=== PATIENT | male | born 1965 | race Caucasian/White ===

== ENCOUNTER 2024-05-12 04:42 | Emergency (ER) | payer OTHER ==
[~2024-05-12] VITALS: Ht 185.4 cm; Wt 99.8 kg
--- NOTE | 2024-05-12 04:50 | ERN ---
General Chief Complaint: Chest Pain Stated Complaint: CHEST PAIN Time Seen by MD: 04:44 Source: patient History of Present Illness Initial Comments 58-YEAR-OLD GENTLEMAN COMING IN WITH LEFT-SIDED CHEST PAIN. PATIENT STATES THAT THE LEFT-SIDED CHEST PAIN BEGAN THREE DAYS AGO IN HIS PROGRESSIVELY MORE CONSTANT. INITIALLY STARTED SPORADICALLY NOT ASSOCIATED WITH PHYSICAL ACTIVITY. HE INITIALLY BLAMED THE SYMPTOMS ON SALT WATER AIR. Allergies: Coded Allergies: No Known Drug Allergies (Unverified Allergy, Unknown, 05/12/24) ROS Dictation CONSTITUTIONAL: NO CHILLS, NO FEVER, NO WEAKNESS, NO DIAPHORESIS, NO MALAISE. HEAD/FACE: NO SIGNS OF TRAUMA. EENT: NO EYE PAIN, NO BLURRED VISION, NO TEARING, NO DOUBLE VISION, NO EAR PAIN, NO EAR DISCHARGE, NO NOSE PAIN, NO NASAL CONGESTION, NO THROAT PAIN, NO THROAT SWELLING, NO MOUTH PAIN. RESPIRATORY: NO COUGH, NO ORTHOPNEA, NO SOB, NO STRIDOR, NO WHEEZING. CARDIOVASCULAR: NO CHEST PAIN, NO EDEMA, NO PALPITATIONS, NO SYNCOPE. GASTROINTESTINAL/ABDOMINAL: NO ABDOMINAL PAIN, NO CONSTIPATION, NO DIARRHEA, NO NAUSEA, NO VOMITING. GENITOURINARY: NO ABNORMAL DISCHARGE, NO DYSURIA, NO FREQUENT URINATION, NO HEMATURIA. NO COMPLAINTS OF PAIN IN THE GENITALS. MUSCULOSKELETAL: NO BACK PAIN, NO GOUT, NO JOINT PAIN, NO JOINT SWELLING, NO MUSCLE PAIN, NO MUSCLE STIFFNESS, NO NECK PAIN. INTEGUMENTARY: NO CHANGE IN COLOR, NO CHANGE IN HAIR/NAILS, NO DRYNESS, NO LESION, NO LUMPS, NO RASH. NEUROLOGICAL/PSYCH: NO ANXIETY, NOT DEPRESSED, NO EMOTIONAL PROBLEM, NO HEADACHE, NO NUMBNESS, NO PRE-EXISTING DEFICIT, NO HISTORY OF SEIZURES, NO TREMORS, NO WEAKNESS. HEMATOLOGIC/LYMPHATIC: NOT ANEMIC, NO HISTORY OF BLOOD CLOTS, NO APPARENT BLEEDING, NO BRUISING, GLANDS NOT SWOLLEN. ALL SYSTEMS NEGATIVE, EXCEPT NOTED. Physical Exam Physical Exam Dictation VITAL SIGNS: REVIEWED. GENERAL APPEARANCE: ALERT, ORIENTED X3, NO ACUTE DISTRESS, OBESE. HEAD AND FACE: NON-TRAUMATIC. EYES: PERRL, PINK CONJUNCTIVAS, EYELID NO TRAUMA, ANTERIOR CHAMBER CLEAR. EARS: PINNAS INTACT AND NO SIGNS OF TRAUMA OR ERYTHEMA. EAR CANALS CLEAR AND NO DISCHARGE. TMS NO ERYTHEMA. NOSE: NO DISCHARGE, NO BLEEDING. OROPHARYNX: MOUTH NORMAL, TEETH NO CARIES, TONGUE PINK. PHARYNX CLEAR, NO ERYTHEMA. TONSILS NO EXUDATES, NO ABSCESSES NOTED. MUCOUS MEMBRANE MOIST. NECK: SUPPLE, NON-TENDER, NO THYROMEGALY, NO MASSES, NO JVD, NO BRUITS. BREAST: DEFERRED. CHEST: NO TENDERNESS, NO CREPITUS, NO PARADOXICAL MOVEMENT, NO RETRACTIONS. LUNGS: CLEAR, WELL-VENTILATED, SYMMETRIC, NO RALES, NO WHEEZING, NO RHONCHI, NO STRIDOR, GOOD BREATH SOUNDS BILATERALLY. HEART: REGULAR RATE, REGULAR RHYTHM, NO MURMUR, NO GALLOPS. VASCULAR: NO PERIPHERAL EDEMA. ABDOMEN: SOFT, POSITIVE BOWEL SOUNDS, NONDISTENDED, NO GUARDING, NONTENDER, NO REBOUND, NO MASSES NO HEPATOMEGALY, NO SPLENOMEGALY, NO LOREDO'S SIGN, NO NABEEL IAS. RECTAL: DEFERRED. GENITAL: DEFERRED. NEUROLOGICAL: NORMAL SPEECH, GROSS MOTOR FUNCTION INTACT, GROSS SENSORY FUNCTION INTACT. MUSCULOSKELETAL: NECK NONTENDER, FULL RANGE OF MOTION, BACK NONTENDER, FULL RANGE OF MOTION. EXTREMITIES: NONTENDER, FULL RANGE OF MOTION. SKIN: COLOR PINK, DRY, NO TURGOR, NO RASH, NO LACERATIONS, NO ABRASIONS, NO CONTUSIONS. LYMPHATICS: DEFERRED. Results Laboratory and Microbiology Lab and Micro Result Laboratory Tests Test 05/12/24 04:51 05/12/24 05:21 05/12/24 07:25 White Blood Count 5.0 K/uL (4.8-10.8) Red Blood Count 4.73 MIL/uL (4.50-6.20) Hemoglobin 14.7 g/dL (14.0-18.0) Hematocrit 41.7 % (42-54) L Mean Corpuscular Volume 88.2 fL (79-99) Mean Corpuscular Hemoglobin 31.1 pg (27.0-33.0) Mean Corpuscular Hemoglobin Concent 35.3 g/dL (32.0-36.0) Red Cell Distribution Width 11.5 % (11.0-15.5) Platelet Count 240 K/uL (130-400) Mean Platelet Volume 9.1 fL (7.5-10.5) Immature Granulocyte % (Auto) 0.2 % (0-1) Neutrophils (%) (Auto) 45.7 % (40.0-77.0) Lymphocytes (%) (Auto) 37.3 % (21.0-51.0) Monocytes (%) (Auto) 10.8 % (3.0-13.0) Eosinophils (%) (Auto) 5.0 % (0.0-8.0) Basophils (%) (Auto) 1.0 % (0.0-5.0) Neutrophils # (Auto) 2.3 K/uL (1.8-7.7) Lymphocytes # (Auto) 1.9 K/uL (1.0-4.8) Monocytes # (Auto) 0.5 K/uL (0.1-1.0) Eosinophils # (Auto) 0.25 K/uL (0.00-0.70) Basophils # (Auto) 0.05 K/uL (0.00-0.20) Absolute Immature Granulocyte (auto 0.01 K/uL (0-1) Nucleated Red Blood Cells 0.0 % (0.0-0.19) Prothrombin Time 9.8 SEC (9.6-11.6) Prothromb Time International Ratio <= 0.93 (0.85-1.15) Activated Partial Thromboplast Time 23.9 SEC (26.3-35.5) L Sodium Level 142 mmol/L (136-145) Potassium Level 4.5 mmol/L (3.5-5.1) Chloride Level 103 mmol/L (101-111) Carbon Dioxide Level 31 mmol/L (21-32) Blood Urea Nitrogen 16 mg/dL (7-18) Creatinine 0.9 mg/dL (0.5-1.3) Glomerular Filtration Rate Calc 98 mL/min (>90) Random Glucose 109 mg/dL (70-105) H Total Calcium 9.0 mg/dL (8.5-10.1) Magnesium Level 1.70 mg/dL (1.80-2.40) L Total Creatine Kinase 105 U/L (21-232) Troponin I High Sensitivity 6 ng/L (4-75) 6 ng/L (4-75) B-Type Natriuretic Peptide 8 pg/mL (0-100) Urine Color LIGHT-YELLOW (YELLOW) Urine Appearance CLEAR (CLEAR) Urine pH 5.0 (5.0-8.0) Urine Specific [place] 1.015 (1.001-1.031) Urine Protein NEGATIVE mg/dL (NEGATIVE) Urine Glucose (UA) NEGATIVE mg/dL (NEGATIVE) Urine Ketones NEGATIVE mg/dL (NEGATIVE) Urine Occult Blood NEGATIVE (NEGATIVE) Urine Nitrate NEGATIVE (NEGATIVE) Urine Bilirubin NEGATIVE mg/dL (NEGATIVE) Urine Urobilinogen 0.2 mg/dL (0.2-1.0) Urine Leukocyte Esterase NEGATIVE Teressa/uL Labs Reviewed?: Yes EKG/XRAY/US/CT/MRI EKG Comment 05/12/2024 TIME 4:45 A.M. VENTRICULAR RATE [address] SINUS RHY[address] [place] [address] WAVE ELEVATION OR DEPRESSION MDM CC: chest pain Historian: pateint Limitations by social determinates of health: [place], no local care here Comorbidities: denies medical conditions VS: HTN 162/92, otherwise stable. Ddx: ACS, PE, TAD, PNA, bronchitis, etc. EKG ( Independently interpreted by me) : NSR w/ sinus arrhythmia, rate 75, LAD, good RWP, no STEMI. Independently interpreted by me. Labs (independently ordered & interpreted by me): CBC normal. Coags normal. BMP normal. Mag low at 1.7. CK normal. BNP normal. Troponin x 2 normal. CXR (independently ordered & interpreted by me): no cardiomegally, no effusions, no focal infiltrates. No acute abnormalities. Treatment in ED: patient took ASA prior to arrival. Magnesium IV for replacement. NTG for pain. Zofran, protonix. Re-eval: patient pain free. Stable VS other than some HTN. Risk: patient has a HEART score of 1 due to age only. Low risk with 2 normal troponins. Low risk wells. No signs of PE, PTX, sepsis, etc. No life threats currently. Plan: I offered admission for cardiac workup, but patient prefers to go home and f/u as outpatient. Will DC. ED Course Orders Procedure Category Date Status Time Cbc With Differential LAB 05/12/24 Complete 04:46 Prothrombin Time With LAB 05/12/24 Complete INR 04:46 B-Type Natriuretic LAB 05/12/24 Complete Peptide 04:46 Chest 1vw RAD 05/12/24 Taken 04:46 12 Lead Ekg Tracing- EKG 05/12/24 Complete Technical 04:46 Ondansetron 4mg Inj PHA 05/12/24 Complete (Zofran 4mg Inj) 05:00 Magnesium LAB 05/12/24 Complete 04:46 Creatine Kinase, Total LAB 05/12/24 Complete 04:46 Troponin I High LAB 05/12/24 Complete Sensitivity 04:46 Urinalysis Profile LAB 05/12/24 Complete 04:46 Partial LAB 05/12/24 Complete Thromboplastin Time 04:46 Basic Metabolic Panel LAB 05/12/24 Complete 04:46 Pantoprazole 40mg Inj PHA 05/12/24 Complete (Protonix 40mg Inj 06:00 Magnesium 2gm Premix PHA 05/12/24 Complete 50ml (Magnesium 2gm 05:54 Troponin I High LAB 05/12/24 Logged Sensitivity 05:56 Nitroglycerin 0.4mg PHA 05/12/24 In Process Sl Tab (Nitrostat) 07:00 12 Lead Ekg Tracing- EKG 05/12/24 Logged Technical 07:32 Troponin I High LAB 05/12/24 Complete Sensitivity 07:32 Current Medications Medications (Trade) Dose Ordered Sig/Juan Route PRN Reason Start Time Stop Time Status Last Admin Dose Admin Magnesium Sulfate 50 ml @ 0 mls/hr PROTOCOL STAT IV 05/12/24 05:54 05/12/24 05:55 DC 05/12/24 06:19 Nitroglycerin (Nitrostat) 0.4 mg AD PRN SL CHEST PAIN 05/12/24 07:00 06/11/24 06:59 Ondansetron HCl (zoFRAN 4MG INJ) 4 mg ONCE ONCE IVP 05/12/24 05:00 05/12/24 05:01 DC 05/12/24 05:34 Pantoprazole Sodium (PROTonix 40MG INJ) 40 mg ONCE ONCE IVP 05/12/24 06:00 05/12/24 06:01 DC 05/12/24 06:19 Vital Signs Date Time Temp Pulse Resp B/P (MAP) Pulse Ox O2 Delivery O2 Flow Rate FiO2 05/12/24 06:30 97.9 76 20 154/88 100 Room Air* 0 21 05/12/24 04:54 97.9 72 20 162/92 100 Room Air* 0 21 05/12/24 04:48 98.2 81 17 162/92 100 Room Air 0 DX & DISP Disposition: Discharge Departure Impression: Primary Impression: Chest pain Additional Impressions: High blood pressure, Low magnesium levels Condition: Stable Additional Instructions: You have been diagnosed with low risk chest pain, high blood pressure readings, and low magnesium here in the ER. Your blood pressure was 154/88 in the ER. This is elevated. Please follow up with your primary doctor back home in [place] for re-evaluation. Your lab work (CBC, coagulation studies, urinalysis, BMP, magnesium level, CK, troponin x2, BNP) shows low magnesium ( 1.7), but is otherwise unremarkable. You received magnesium supplementation here in the ER. Your EKG shows a sinus rhythm. your chest x-ray is normal. Regarding your chest pain, you are LOW risk for cardiac disease, but no ZERO risk. Monitor for worsening or persistent chest pains, shortness of breath, dizziness or fainting, or in the other concerning symptoms. Return to the emergency department if those develop. Otherwise, you can follow up as an outpatient with your primary doctor. Recommendations: 1: Follow up with your primary doctor at home regarding your chest pain. 2: Follow up with your primary doctor at home regarding your high blood pressure. Limit your salt intake. Eat a heart healthy diet rich in fruits, vegetables, whole grains, and lean protein. Reduce caffeine and alcohol consumption. In for at least 30 minutes of moderate exercise three to four days per week. Avoid smoking. 3: Increase magnesium rich foods in your diet such as nuts, seeds, leafy greens, whole grains, and fish. You can also take an [id number] multivitamin if needed. Please return to the emergency department if you have any concerns. CHADD FLANAGAN MD May 12, 2024 04:50 MERRITT LEON DO May 12, 2024 07:46
[2024-05-12 04:59] LABS: BASOPHILS # (AUTO) 0.05 K/uL (0.00-0.20); EOSINOPHILS # (AUTO) 0.25 K/uL (0.00-0.70); HEMATOCRIT 41.7 % (42-54); IMMATURE GRANULOCYTE ABSOLUTE 0.01 K/uL (0-1); LYMPHOCYTES # (AUTO) 1.9 K/uL (1.0-4.8); LYMPHOCYTES % (AUTO) 37.3 % (21.0-51.0); MEAN CORPUSCULAR HEMOGLOBIN 31.1 pg (27.0-33.0); MEAN CORPUSCULAR HGB CONC 35.3 g/dL (32.0-36.0); MEAN CORPUSCULAR VOLUME 88.2 fL (79-99); MONOCYTES # (AUTO) 0.5 K/uL (0.1-1.0); MONOCYTES % (AUTO) 10.8 % (3.0-13.0); NEUTROPHILS # (AUTO) 2.3 K/uL (1.8-7.7); NEUTROPHILS % (AUTO) 45.7 % (40.0-77.0); PLATELET COUNT (AUTO) 240 K/uL (130-400); RED BLOOD CELL COUNT(AUTO) 4.73 MIL/uL (4.50-6.20); RED CELL DISTRIBUTION WIDTH 11.5 % (11.0-15.5)
[2024-05-12 05:10] LABS: CREATININE 0.9 mg/dL (0.5-1.3); POTASSIUM 4.5 mmol/L (3.5-5.1)
[2024-05-12 05:14] LABS: MAGNESIUM 1.7 mg/dL (1.80-2.40)
[2024-05-12 05:16] LABS: INR <= 0.93 (0.85-1.15); PROTHROMBIN TIME 9.8 SEC (9.6-11.6)
[2024-05-12 05:17] LABS: PARTIAL THROMBOPLASTIN TIME 23.9 SEC (26.3-35.5)
[2024-05-12 05:26] LABS: B-TYPE NATRIURETIC PEPTIDE 8 pg/mL (0-100)
[2024-05-12 05:32] LABS: APPEARANCE,URINE CLEAR (CLEAR); BILIRUBIN,URINE NEGATIVE (NEGATIVE); COLOR,URINE LIGHT-YELLOW (YELLOW); GLUCOSE, URINE (UA) NEGATIVE (NEGATIVE); KETONES,URINE NEGATIVE (NEGATIVE); LEUKOCYTE ESTERASE ,URINE NEGATIVE Leu/uL (NEGATIVE); NITRATE,URINE NEGATIVE (NEGATIVE); OCCULT BLOOD,URINE NEGATIVE (NEGATIVE); PROTEIN,URINE NEGATIVE (NEGATIVE); UROBILINOGEN,URINE 0.2 mg/dL (0.2-1.0)
[2024-05-12] MEDS: ondanSETRON 4MG INJ IVP ONE (05:34)
[2024-05-12 05:40] LABS: ADD UA MICROSCOPIC NO
[2024-05-12] MEDS: PANTOPrazole 40 MG/VIAL IVP ONE (06:19)
[2024-05-12] MEDS: MAGNESIUM 2GM PREMIX 50ML 50 ML IV STA (06:19)
[2024-05-12 06:30] VITALS: TEMP 97.8
[2024-05-12] MEDS ORDERED: NITROGLYCERIN 0.4 MG SL TAB SL PRN (07:00)
--- NOTE | 2024-05-12 07:05 | NUR ---
REPORT RECEIVED FROM EDYTA AVINA
--- NOTE | 2024-05-12 07:30 | NUR ---
GREEN TOP COLLECTED AND SENT TO LAB FOR 2ND TROP
--- NOTE | 2024-05-12 07:33 | NUR ---
PT OOB TO VOID
--- NOTE | 2024-05-12 07:42 | EKG ---
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
--- NOTE | 2024-05-12 08:01 | NUR ---
PENDING DISPOSITION. 2ND TROP NEGATIVE AND 2ND EKG COMPLETED
--- NOTE | 2024-05-12 08:20 | HMCIMG ---
PORTABLE CHEST RADIOGRAPH INDICATION: CP COMPARISON: None FINDINGS: monitoring engineer leads overlie the field of view. Heart size is normal. The pulmonary vascularity and christofer appear normal. No abnormal pulmonary parenchymal opacity or consolidation identified. Subcentimeter calcified granuloma left lung base. No significant pleural effusion noted. No pneumothorax detected. IMPRESSION: No radiographic evidence for any acute cardiopulmonary process.
[2024-05-12 08:30] VITALS: BP 139/88; PULSE 80; RESP 17; O2SAT 99
--- NOTE | 2024-05-12 16:19 | EKG ---
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
== END 2024-05-12 08:54 | disposition home or self-care (01) ==
LOC: EDH 04:42
DX: R07.89 Other chest pain (principal); R03.0 Elevated blood-pressure reading, without diagnosis of hypertension; E61.2 Magnesium deficiency
CPT/HCPCS: 99285; 96374; 96375; 71045; 82550; 83735; 84484 ×2; 80048; 83880; 85025; 85610; 85730; 81003; 36415; 93005 ×2; J3475; J2405; J2470